=== PATIENT | female | born 1960 | race Caucasian/White ===

== ENCOUNTER → 2024-09-29 | Outpatient (CLI) | payer OTHER, SELFPAY ==
--- NOTE | 2024-09-29 12:49 | CT_ITS ---
STUDY: CT ABDOMEN AND PELVIS WITH CONTRAST REASON FOR EXAM: Female, 63 years old. abdominal pain RADIATION DOSAGE (If Supplied By Facility): CTDIvol = ( 30 ) mGy, DLP = ( 813 ) mGycm TECHNIQUE: Oral and IV Readi-CAT and 100mL Isovue-300 was administered. Transaxial images were obtained from the dome of the diaphragm to the symphysis pubis in the portal venous phase. Multiplanar coronal and sagittal images were reformatted. Individualized Dose Optimization Techniques Were Used For This CT. COMPARISON: No relevant prior comparison study available FINDINGS: LOWER CHEST: Lung bases are clear. No cardiomegaly or pericardial effusion. LIVER: The liver is normal in size, shape, and attenuation. No focal mass. GALLBLADDER AND BILIARY TREE: The gallbladder is normally distended. Multiple gallstones are present in the gallbladder lumen.. No gallbladder wall thickening or edema. No pericholecystic fluid. No intra- or extrahepatic biliary ductal dilation. PANCREAS: No focal cystic or solid mass. SPLEEN: Normal size without focal cystic or solid mass. ADRENAL GLANDS: No nodules. KIDNEYS AND URETERS: Normal renal size and position. No hydronephrosis or nephrolithiasis. PERITONEUM: No ascites or free air. No other fluid collection. BOWEL: Oral contrast utilized, spanning throughout the small bowel and into the colon. No obstruction. No colonic wall thickening or inflammation. Mild colonic stool burden. No evidence of acute appendicitis. LYMPH NODES: No enlarged mesenteric or retroperitoneal lymph nodes. VESSELS: Aorta is non-dilated. URINARY BLADDER: Unremarkable. REPRODUCTIVE ORGANS: No pelvic masses. ABDOMINAL WALL: No discrete abdominal or pelvic wall hernia. BONES: No lytic or blastic abnormality. Mild scoliotic curvature of the spine with levoscoliosis. Mild degenerative change. Mild degenerative change of both hips. CT/Abdomen/Pelvis WITH Contrast IMPRESSION: No acute finding in the abdomen or pelvis. No inflammatory changes. Cholelithiasis. Electronically Signed: Ryan Odell MD at 1:20 EDT ,
[2024-09-29 13:15] LABS: CREATININE FINGERSTICK < 1.0 mg/dL (0.55-1.02); EGFR FINGERSTICK > 60.0000 mL/min (>60)
== END | disposition home or self-care (01) ==
LOC: CT 12:45
PROVIDERS: PCP Internal Medicine; Referring Provider Surgery; Visit Provider Surgery
DX: R10.9 Unspecified abdominal pain (principal)
CPT/HCPCS: 74177; Q9967

== ENCOUNTER 2025-02-22 07:07 | Day surgery (SDC) | payer OTHER, SELFPAY ==
[2025-02-22] VITALS (9 sets, daily range): BP systolic 89–125; BP diastolic 49–64; PULSE 65–87; RESP 14–18; TEMP 36.5–36.9; O2SAT 93–96; BMI 26.0
--- NOTE | 2025-02-22 07:34 | PCM.PRE.AN2 ---
ASA Classification* ASA Classification ASA Classification: 2 Assessment & Plan Anesthesia* Anesthesia Assessment Anesthesia Assessment: Discussed sedation and/or anesthesia options, risks, benefits, and alternatives with patient/parents/legal guardian/POA. Questions invited. The patient/parents/legal guardian/POA seems to understand and agrees to proceed with anesthesia plan. Reviewed the physical assessment, medical history, allergy history and patient home medications list prior to surgery/procedure/anesthetic and documented any changes. Performed airway and anesthesia risk assessments. Anesthesia Type Anesthesia Type: MAC History Source History Obtained from:: Patient and Chart Anesthesia Focused Assessment* Temperature: 98.4 F Pulse Rate: 87 Blood Pressure: 125/64 Respiratory Rate: 18 Pulse Ox: 96 Oxygen Delivery Method: Room Air Airway Assessment Mouth opens: >3 cm Mallampati Score: II Teeth Condition: Caps/Crowns (Patient has caps on the Top Front Incisors. 1 crown as well. 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 When Was Last Pacemaker Check QUESTION #4 FULL TEXT: You/Your Family Experience fever (hyperthermia) with Anesthesia Last Oral Intake Last Oral intake: Last Oral Intake NPO since 04:00 02/22/25 07:27 Meds taken in AM with sips of No 02/22/25 07:27 water? Meds patient instructed to take am of surgery Any additional information?: Yes NPO since: 04:00 (Patient finished prep at 4 AM.) PONV PONV - station cashier: PONV - station cashier Female Yes 02/20/25 10:27 HX of Motion Sickness Yes 02/20/25 10:27 HX of N/V After Surgery No 02/20/25 10:27 Non-Smoker Yes 02/20/25 10:27 Duration of Surgery greater No 02/20/25 10:27 than 60 minutes Number of Risk Factors 3 02/20/25 10:27 PONV Score Moderate Risk 02/20/25 10:27 Height & Weight Height & Weight: Anesthesia: Height & Weight Height 5 ft 7 in 02/22/25 07:27 Weight: 75.4 kg 02/22/25 07:27 Body Mass Index (BMI) 26.0 02/22/25 07:27 Respiratory Assessment Respiratory Assessment - station cashier: Respiratory Tract Infection Hx - station cashier Hx Respiratory Tract Infection No 02/20/25 10:27 STOP Sleep Apnea STOP Sleep Apnea - station cashier: STOP Sleep Apnea - station cashier Hx Hypertension No 02/20/25 10:27 Hx Sleep Apnea No 02/20/25 10:27 CPAP BIPAP Do you snore loudly (louder No 02/20/25 10:27 than talking or can be heard Do you often feel tired/ No 02/20/25 10:27 fatigued/ sleepy during daytime? Has anyone observed you stop No 02/20/25 10:27 breathing during sleep? STOP Results Negative 02/20/25 10:27 QUESTION #5 FULL TEXT : Do you snore loudly (louder than talking or can be heard through closed doors)? Tobacco Use History Tobacco Use History - station cashier: Tobacco Use History - station cashier Tobacco Use Smoking Status Never smoker 02/20/25 10:27 Hx Tobacco Use No 02/20/25 10:27 Years Smoking Packs Smoked per Day Smoking Cessation Date was within the last 15 years Hx Smoking Cessation Date Hx Smoking Cessation Counseling Hematologic Medial History Hematologic Hx - station cashier: Hematologic Medical Hx - hvac engineer Hx of Blood Transfusion No 02/20/25 10:27 Hx of Transfusion in last 3 No 02/20/25 10:27 Months Date of Last Transfusion (if within last 3 months) Ever experience any problems No 02/20/25 10:27 with transfusion(s)? Specify any problems Hx of Preganancy in last 3 No 02/20/25 10:27 Months Nurse Filling Out Transfusion VCHRISTIN 02/20/25 10:27 & Questions: Date: 02/20/25 02/20/25 10:27 Time: 10:28 02/20/25 10:27 Patient unable to answer at this time (ie. confused, unrespo /Reproduction History /Reproductive History - station cashier: /Reproductive Hx- station cashier Hx Now Gestational Age (in weeks): EDC: Hx Hx Para Hx Section SAB PFSH Medical History Wears glasses Post-menopausal Cancer History of steroid therapy Back pain Gastric reflux Non-smoker Family history of colon cancer in father delivery delivered Skin cancer GERD (gastroesophageal reflux disease) High blood triglycerides High cholesterol Migraine headache Arthritis Home Medications ?Medication ?Instructions ?Recorded ?Last Taken ?Type pravastatin 80 mg tablet 80 mg PO DAILY 05/21/21 Unknown History rizatriptan 10 mg tablet See Rx Instructions PO .COMPLEX #9 09/04/21 Unknown Rx tabs magnesium glycinate 400 mg PO QDAY 09/06/24 Unknown History meloxicam 15 mg tablet 15 mg PO QDAY PRN pain 09/06/24 Unknown History progesterone micronized 100 mg 100 mg PO QAM 01/03/25 Unknown History capsule Lactobacillus acidophilus 10 100 mmu cells PO DAILY 02/20/25 Unknown History billion cell capsule (NewFlora) ammonium lactate 12 % topical cream 1 applic topical DAILY PRN dry skin 02/20/25 Unknown History estradiol 0.5 mg/0.5 gram (0.1 %) 0.5 mg transdermal DAILY 02/20/25 Unknown History transdermal gel packet (Divigel) famotidine 40 mg tablet 40 mg PO DAILY 02/20/25 Unknown History Allergy/AdvReac Type Severity Reaction Status Date / Time codeine AdvReac Mild 'sick to Verified 02/22/25 07:26 stomach' rosuvastatin (From Crestor) AdvReac Mild 'sick to Verified 02/22/25 07:26 stomach' Family History Mother Anemia Anxiety Arthritis Depression Diabetes High cholesterol Kidney disease Hypertension Father Colon cancer Hypertension Skin cancer (melanoma) Brother Myocardial infarction, Onset Age: 40 Surgical History (Updated 02/22/25 @ 07:[address] Herminio Cardona MD) Previous section Hx of colonoscopy Social History household members: spouse current occupational status: employed Smoking Status: Never smoker alcohol intake: former substance use type: does not use Review of Systems (Anesthesia) ROS Narrative System reviewed and no additional complaints, except as documented.
--- NOTE | 2025-02-22 07:52 | HP.PCM_ITS ---
HPI - General HPI Narrative RAJINDER CORNELL, is a 64 F who presents for screening colonoscopy. She has colonoscopies every 5 years due to family history in her father. She has not had polyps in her previous colonoscopies. She denies abdominal pain or blood in the stool. [facility] Medical History Wears glasses Post-menopausal Cancer History of steroid therapy Back pain Gastric reflux Non-smoker Family history of colon cancer in father delivery delivered Skin cancer GERD (gastroesophageal reflux disease) High blood triglycerides High cholesterol Migraine headache Arthritis Home Medications ?Medication ?Instructions ?Recorded ?Last Taken ?Type pravastatin 80 mg tablet 80 mg PO DAILY 05/21/21 Unkn own History rizatriptan 10 mg tablet See Rx Instructions PO .COMP SHOLA #9 09/04/21 Unknown Rx tabs magnesium glycinate 400 mg PO QDAY 09/06/24 Unkn own History meloxicam 15 mg tablet 15 mg PO QDAY PRN pain 09/06 Unknown History progesterone micronized 100 mg 100 mg PO QAM 01/03/25 Unknown History capsule Lactobacillus acidophilus 10 100 mmu cells PO DAILY Unknown History billion cell capsule (NewFlora) ammonium lactate 12 % topical cream 1 applic topical D AILY PRN dry skin 02/20/25 Unknown History estradiol 0.5 mg/0.5 gram (0.1 %) 0.5 mg transdermal D AILY 02/20/25 Unknown History transdermal gel packet (Divigel) famotidine 40 mg tablet 40 mg PO DAILY 02/20/25 Unkn own History Allergy/AdvReac Type Severity Reaction Status Date / Time codeine AdvReac Mild 'sick to Verified 02/22/25 07:26 stomach' rosuvastatin (From Crestor) AdvReac Mild 'sick to Verified 02/22/25 07:26 stomach' Family History Mother Anemia Anxiety Arthritis Depression Diabetes High cholesterol Kidney disease Hypertension Father Colon cancer Hypertension Skin cancer (melanoma) Brother Myocardial infarction, Onset Age: 40 Surgical History (Updated 02/22/25 @ 07:[address] Herminio Cardona MD) Previous section Hx of colonoscopy Social History household members: spouse current occupational status: employed Smoking Status: Never smoker alcohol intake: former substance use type: does not use Past Medical/Surgical History Planned Operation Planned Operative Procedure(s): COLONOSCOPY-OA Previous Hospitalizations/Surgeries HX Hospitalizations: No Any Problems With Anesthesia: No You/Your Family Experience Fever (Hyperthermia) With Anes: No Cholinesterase deficiency: No Cardiovascular Hx Hypertension: No Respiratory Hx Sleep Apnea: No Hx Respiratory Tract Infection/Cold (presently): No Do You Snore Loudly (louder than talking or can be heard): No Do You Often Feel Tired/ Fatigued/ Sleepy Dring Daytime?: No Has Anyone Observed You Stop Breathing During Sleep?: No Result (for STOP score): Negative Smoking Status: Never smoker Neurological Does patient have nerve stimulator: No Miscellaneous Recent Exposure to Contagious Disease: No Allergies codeine Adverse Reaction (Mild, Verified 02/22/25 07:26) 'sick to stomach' rosuvastatin (From Crestor) Adverse Reaction (Mild, Verified 02/22/25 07:26) 'sick to stomach' Discharge Is Pt Admitted From a Group Home, or a Residential: No After D/C, Where Do you Plan to Go: Return Home Vital Signs Vital Signs Vital Signs: 02/22/25 07:27 02/22/25 07:27 02/22/25 07:42 Temperature 98.4 F 98.4 F Temperature Source Temporal Pulse Rate 87 87 Respiratory Rate 18 18 Respiratory Pattern Normal Blood Pressure 125/64 H 125/64 H Blood Pressure Mean 84 Blood Pressure Source Monitor Blood Pressure Position Sitting Blood Pressure Location Left Arm Pulse Ox 96 96 Oxygen Delivery Method Room Air Room Air Weight Weight: 166 lb 3.657 oz Body Mass Index (BMI) 26.0 Physical Exam Const alert and oriented x3 HEENT normocephalic Eyes PERRL Resp normal respiratory effort and normal air movement Cardio regular rate and regular rhythm GI soft to palpation, non-tender and non-distended Extremity normal to inspection Assessment & Plan Assessment/Plan (1) Encounter for screening for malignant neoplasm of colon: PLAN: I explained endoscopy in detail to the patient. I explained the risks including but not limited to stroke or heart attack with anesthesia, perforation of the GI tract, bleeding, infection. I explained that any of these could necessitate further emergency surgery. The patient understands and all questions were answered sufficiently. The patient wishes to proceed with procedure. Dmitry Pandey MD Pager: [facility] [address] [place] [address] [address] [place] [address] Office: Surgery Risks - Colonoscopy Risks Include but are not Limited To: Risks include but are not limited to: Bleeding, perforation requiring further surgery, inability to complete colonoscopy requiring barium enema.
--- NOTE | 2025-02-22 08:21 | PCM.POST.ANE ---
Anesthesia: Postop Eval I Current Vital Signs Temperature: 97.9 F Pulse Rate: 76 Blood Pressure: 98/52 Respiratory Rate: 16 Pulse Ox: 93 Oxygen Delivery Method: Room Air Assessment Airway patent: Yes Spontaneous unlabored respirations: Yes Mental status: Asleep nausea: No Vomiting: No Anesthesia Complication: No Fluid Hydration Crystalloid volume administer (ml): 35 Total IV fluid infused: 35 Progress Note Anesthesia document: Postop Eval 1 completed: Yes
--- NOTE | 2025-02-22 08:22 | OP.COLON_ITS ---
Patient Name: Kandace Walton Procedure Date: 02/22/2025 7:33 AM Date of : 1960 Age: 64 Procedure: Colonoscopy Indications: Screening in patient at increased risk: Family history of 1st-degree relative with colorectal cancer before age 60 years Providers: Dmitry Pandey MD Medicines: Propofol per Anesthesia Patient Profile: This is a 64 year old female. Refer to note in patient chart for documentation of history and physical. Last Colonoscopy: 5 years ago. Complications: No immediate complications. Procedure: Pre-Anesthesia Assessment: - Prior to the procedure, a History and Physical was performed, and patient medications and allergies were reviewed. The patient's tolerance of previous anesthesia was also reviewed. The risks and benefits of the procedure and the sedation options and risks were discussed with the patient. All questions were answered, and informed consent was obtained. Prior Anticoagulants: The patient has taken no anticoagulant or antiplatelet agents. After reviewing the risks and benefits, the patient was deemed in satisfactory condition to undergo the procedure. After I obtained informed consent, the scope was passed under direct vision. Throughout the procedure, the patient's blood pressure, pulse, and oxygen saturations were monitored continuously. The Colonoscope was introduced through the anus and advanced to the cecum, identified by appendiceal orifice and ileocecal valve. The colonoscopy was performed without difficulty. The patient tolerated the procedure well. The quality of the bowel preparation was good. The ileocecal valve, appendiceal orifice, and rectum were photographed. Scope In: 8:01:50 AM Scope Withdrawal Time 0 hours 6 minutes 3 seconds Scope Out: 8:13:17 AM Total Procedure Duration Time 0 hours 11 minutes 27 seconds Findings: The entire examined colon appeared normal on direct and retroflexion views. Impression: - The entire examined colon is normal on direct and retroflexion views. - No specimens collected. Recommendation: - Discharge patient to home. - Resume previous diet. - Continue present medications. - Repeat colonoscopy in 5 years for surveillance. Procedure Code(s): --- Professional --- 19279, Colonoscopy, flexible; diagnostic, including collection of specimen(s) by brushing or washing, when performed (separate procedure) Diagnosis Code(s): --- Professional --- Z80.0, Family history of malignant neoplasm of digestive organs CPT copyright 2022 [employer]. All rights reserved. The codes documented in this report are preliminary and upon debone processing supervisor review may be revised to meet current compliance requirements. Dmitry Pandey MD 02/22/2025 8:22:03 AM This report has been signed electronically. Number of Addenda: 0 Note Initiated On: 02/22/2025 7:33 AM
--- NOTE | 2025-02-22 08:22 | OP.CCLET_ITS ---
02/22/2025 Miguel Rodriguez Re : Colonoscopy procedure for Kandace Walton Dear Michael This procedure was performed on January. My impressions and recommendations are as follows: Impressions : - The entire examined colon is normal on direct and retroflexion views. - No specimens collected. Recommendations : - Discharge patient to home. - Resume previous diet. - Continue present medications. - Repeat colonoscopy in 5 years for surveillance. My findings are described in the full procedure note, which is enclosed. If I can be of further assistance, please feel free to contact me at Doctor phone number(s): , Work: . Sincerely, Dmitry Pandey MD 02/22/2025 8:22:03 AM This report has been signed electronically.
--- NOTE | 2025-02-22 22:25 | PCM.POSTANE2 ---
Anesthesia Postop Eval I Sum Postop Eval Completion status Anesthesia document: Postop Eval 1 completed: Yes Anesthesia Postop Eval I Summary Anesthesia Postop Eval I Summary: Anesthesia Postop Eval I: Assessment Summary Airway patent Yes 02/22/25 08:22 [email or web address] Spontaneous unlabored Yes 02/22/25 08:22 [email or web address] respirations Mental status Asleep 02/22/25 08:22 [email or web address] nausea No 02/22/25 08:22 [email or web address] Vomiting No 02/22/25 08:22 [email or web address] Anesthesia Postop Eval I: Fluid Summary Crystalloid volume administer 35 02/22/25 08:22 [email or web address] (ml) Colloids volume administered ( ml) Blood Product volume administered (ml) Total IV fluid infused 35 02/22/25 08:22 [email or web address] Anesthesia Postop Eval I: Summary Notes Anesthesia Complication No 02/22/25 08:22 [email or web address] Anesthesia Complication Comment: Post-operative progress note Anesthesia: Postop Eval II Evaluation Mental status: Awake and Calm Pain Level: 0 nausea: No Vomiting: No Complications Anesthesia Complication: No
== END 2025-02-22 09:02 | disposition home or self-care (01) ==
LOC: EN 07:08 → AC 07:09
PROVIDERS: PCP Internal Medicine; Referring Provider Internal Medicine; Visit Provider Surgery
PROC: 0DJD8ZZ Inspection of Lower Intestinal Tract, Via Natural or Artificial Opening Endoscopic (ICD-10-PCS; CPT 45378; principal; 2025-02-22 07:55)
DX: Z12.11 Encounter for screening for malignant neoplasm of colon (principal); K21.9 Gastro-esophageal reflux disease without esophagitis; E78.00 Pure hypercholesterolemia, unspecified; Z80.0 Family history of malignant neoplasm of digestive organs
CPT/HCPCS: 45378; A4216; J2405